=== PATIENT | female | born 1975 | race Caucasian/White ===

== ENCOUNTER 2020-09-10 11:07 | Day surgery (SDC) | payer OTHER ==
[2020-09-08 09:00] LABS: BASOPHILS % (AUTO) 1 % (0-1); EOSINOPHILS % (AUTO) 2 % (1-7); LYMPHOCYTES % (AUTO) 29 % (22-44); MEAN CORPUSCULAR HEMOGLOBIN 31.5 pg (27.0-34.8); MEAN CORPUSCULAR HGB CONC 33.7 g/dL (32.4-35.8); MEAN PLATELET VOLUME 8.3 fL (7.4-10.4); MONOCYTES % (AUTO) 9 % (2-9); NEUTROPHILS % (AUTO) 60 % (42-75); PLATELET COUNT 297 x10^3/uL (130-400); RED BLOOD COUNT 4.92 x10^6/uL (3.82-5.3); RED CELL DISTRIBUTION WIDTH 13.5 % (9.6-15.2)
[2020-09-08 09:05] LABS: MD NO
[2020-09-08 09:12] LABS: ANION GAP 6 mmol/L (5-15); CALCIUM 9.1 mg/dL (8.5-10.1); CHLORIDE 107 mmol/L (98-107)
[2020-09-08 09:17] LABS: CREATININE 0.86 mg/dL (0.55-1.02)
[~2020-09-10] VITALS: Ht 165.1 cm; Wt 87.1 kg
[~2020-09-10 11:07] MED LIST: FENTANYL PF 100 MCG/2ML ONE; IBUP-1222 PO; MIDAZOLAM 1 MG/ML, 2ML ONE; OMEP20TA62 PO; OXYC1TAB14 PO; PNV91TAB3 PO
[2020-09-10 11:36] VITALS: BP 125/84
[2020-09-10] MEDS ORDERED: TYLENOL PO (11:41)
[2020-09-10] MEDS ORDERED: LACTATED RINGERS 1,000 ML IV SCH (12:00)
[2020-09-10] MEDS ORDERED: CHLORHEXIDINE 15 ML UDC PO ONE (12:00)
[2020-09-10 12:06] LABS: HCG UR SG 1.023 (1.003-1.030)
[2020-09-10] MEDS ORDERED: VASOPRESSIN 20 UNIT/ML, 1ML ONE (12:23)
[2020-09-10] MEDS ORDERED: KETOROLAC 30 MG/1 ML ONE (13:01)
[2020-09-10] MEDS ORDERED: ONDANSETRON 2MG/ML, 2ML ONE (13:01)
[2020-09-10] MEDS ORDERED: DEXAMETHASONE 4 MG/ML, 1ML ONE (13:01)
[2020-09-10] MEDS ORDERED: PROPOFOL 10 MG/ML, 50ML ONE (13:01)
[2020-09-10] MEDS ORDERED: OXYcodone 5 MG/5 ML ORAL.SOL UDC PO PRN (13:30)
[2020-09-10] MEDS ORDERED: MEPERIDINE/PF 25MG/0.5ML IVPush PRN (13:30)
[2020-09-10] MEDS ORDERED: HALOPERIDOL 5 MG/ML IV PRN (13:30)
[2020-09-10] MEDS ORDERED: LABETALOL 5MG/ML, 20ML IV PRN (13:30)
[2020-09-10] MEDS ORDERED: EPHEDRINE 50 MG/ML, 1ML IVPush PRN (13:30)
[2020-09-10] MEDS ORDERED: ACETAMINOPHEN 325 MG TABLET PO PRN (13:30)
[2020-09-10] MEDS ORDERED: PROMETHAZINE 25 MG/ML, 1ML IVPush PRN (13:30)
[2020-09-10] MEDS ORDERED: hydrALAzine 20 MG/ML, 1ML IV PRN (13:30)
[2020-09-10] MEDS ORDERED: LORazepam 2 MG/ML, 1ML IVPush PRN (13:30)
[2020-09-10] MEDS ORDERED: DIPHENHYDRAMINE 50 MG/ML, 1ML IVPush PRN (13:30)
[2020-09-10] MEDS ORDERED: METOPROLOL 1 MG/ML, 5ML IV PRN (13:30)
[2020-09-10] MEDS ORDERED: ONDANSETRON 2MG/ML, 2ML IVPush PRN (13:30)
[2020-09-10] MEDS ORDERED: FENTANYL PF 100 MCG/2ML ONE (13:51)
[2020-09-10] MEDS ORDERED: OXYcodone 5 MG/5 ML ORAL.SOL UDC ONE (13:51)
[2020-09-10] MEDS ORDERED: ACETAMINOPHEN 650 MG/20.3 ML UDC ONE (13:51)
[2020-09-10] MEDS: FENTANYL PF 100 MCG/2ML IV PRN ×2 (13:53→13:58)
[2020-09-10] MEDS ORDERED: HYDROmorphone 1 MG/ML, 1ML INJ ONE (14:09)
[2020-09-10] MEDS: HYDROmorphone 1 MG/ML, 1ML INJ IVPush PRN ×2 (14:10→14:17)
== END 2020-09-10 16:00 | disposition home or self-care (01) ==
LOC: OR 11:07
PROVIDERS: ATTEND Obstetrics & Gynecology
DX: Z30.432 Encounter for removal of intrauterine contraceptive device (principal); N92.0 Excessive and frequent menstruation with regular cycle; R10.2 Pelvic and perineal pain; J45.909 Unspecified asthma, uncomplicated; E66.3 Overweight; Z68.32 Body mass index [BMI] 32.0-32.9, adult; Z20.822 Contact with and (suspected) exposure to COVID-19; Z79.899 Other long term (current) drug therapy; Z87.891 Personal history of nicotine dependence; Z82.61 Family history of arthritis; Z72.89 Other problems related to lifestyle
CPT/HCPCS: 36415; 58301; 58563; 80048; 81025; 84702; 85025; 93005; J1100; J1170; J1885; J2250; J2405; J2704; J3010; J7120; U0003